=== PATIENT | female | born 1975 | race Caucasian/White ===

== ENCOUNTER 2017-02-18 14:57 | Emergency (ER) | payer OTHER ==
[2017-02-18 17:06] LABS: HEMOGLOBIN 14.8 gm/dl (12.3-15.3); RED BLOOD COUNT 4.92 M/UL (4.00-5.10); WHITE BLOOD COUNT 10.3 K/UL (4.5-11.0)
[2017-02-18 17:20] LABS: BUN/CREATININE RATIO 17 (0-10)
== END 2017-02-18 21:15 | disposition home or self-care (01) ==
LOC: ER1 14:57
PROVIDERS: Physician Assistant
DX: R10.817 Generalized abdominal tenderness (principal); E11.9 Type 2 diabetes mellitus without complications; J45.909 Unspecified asthma, uncomplicated; F17.200 Nicotine dependence, unspecified, uncomplicated; Z85.528 Personal history of other malignant neoplasm of kidney; Z90.49 Acquired absence of other specified parts of digestive tract; Z88.1 Allergy status to other antibiotic agents; Z88.2 Allergy status to sulfonamides; Z88.5 Allergy status to narcotic agent; Z79.899 Other long term (current) drug therapy
CPT/HCPCS: 36415; 80053; 81001; 82150; 82962; 83690; 84484; 84703; 85025; 93005; 96374; 96375; 96376; 99284; J2270; J2405; J7030

== ENCOUNTER → 2017-03-19 | Outpatient (CLI) | payer OTHER | LOC: HEART 5 10:32 | DX: J44.9 Chronic obstructive pulmonary disease, unspecified (principal); J45.909 Unspecified asthma, uncomplicated; F17.210 Nicotine dependence, cigarettes, uncomplicated; R94.2 Abnormal results of pulmonary function studies | CPT/HCPCS: 94060; 94729 ==

== ENCOUNTER → 2017-04-01 | Outpatient (CLI) | payer OTHER | LOC: KOH-I 10:54 | DX: R10.0 Acute abdomen (principal); K76.0 Fatty (change of) liver, not elsewhere classified; R16.2 Hepatomegaly with splenomegaly, not elsewhere classified | CPT/HCPCS: 76700 ==